=== PATIENT | male | born 1950 ===

== ENCOUNTER 2016-12-02 09:47 | Emergency (ER) | payer MEDICARE, BC ==
[2016-12-02 09:58] VITALS: BP 139/76
[2016-12-02] MEDS ORDERED: Lidocaine 1% MPF wEPI 200,000* 30 ML SDV ONE (10:28)
[2016-12-02] MEDS ORDERED: Lidocain 1% EPI 1:100,000 * 30 ML MDV ONE (10:29)
--- NOTE | 2016-12-02 11:34 | UC ---
Deshaun De La Garza Adam, [facility] 12/02/16 at 1008 . Skin Complaint HPI - HPI Summary HPI Summary: Doctors note: A 66 y/o male presents with redness under his left axilla. His vital signs are stable. He is afebrile. Pulse ox 100. Pt is a non-smoker. He has no allergies. He has Hx of HTN, arthritis, and previous similar skin complaints. In Room: Pt states that he noticed this abscess 2 days ago. The raised area is tender and touching the abscess aggravates the pain. Pt states that he has had this same condition 3 times in the same location. In the past, he has been treated at [facility] and been told that they "got the core out" and been given Penicillin. Pt states that he recently got over the flu. He has no other complaints at this time. He denies any allergies to medications. He denies any Hx of overnight hospital stays. FMHx of cardiac disease. - History of Current Complaint Chief Complaint: UCSkin Time Seen by Provider: 12/02/16 10:07 Stated Complaint: SKIN COMPLAINT Hx Obtained From: Patient Onset/Duration: Gradual Onset, Lasting Days, Still Present Timing: Constant Onset Severity: Mild Current Severity: Moderate Location: Other - Under left axilla Character: Pain, Redness, Raised Aggravating: Touch Alleviating: Nothing Similar Episode/Dx as: 3 prior abscesses in same location - Allergy/Home Medications Allergies/Adverse Reactions: Allergies Allergy/AdvReac Type Severity Reaction Status Date / Time No Known Allergies Allergy Verified 11/04/16 08:22 Review of Systems All Other Systems Reviewed And Are Negative: Yes PMH/Surg Hx/FS Hx/Imm Hx Endocrine History Of: Denies: Diabetes, Thyroid Disease Cardiovascular History Of: Reports: Hypertension Denies: Cardiac Disorders Respiratory History Of: Denies: COPD, Asthma GI/ History Of: Denies: Ulcer - Surgical History Surgical History: Yes Surgery Procedure, Year, and Place: right knee calcium scraping. hernia repair x3 - inguinal and umbilical, CATARACTS - Family History Known Family History: Positive: Cardiac Disease, Hypertension - Social History Occupation: Retired Lives: With Family - Domestic partner female Alcohol Use: Rare Substance Use Type: None Smoking Status (MU): Never Smoked Tobacco Have You Smoked in the Last Year: No - Immunization History Most Recent Influenza Vaccination: 2014 Physical Exam Triage Information Reviewed: Yes Appearance: Well-Appearing, No Pain Distress, Well-Nourished Vital Signs: Initial Vital Signs Temp 98.3 F 12/02/16 09:53 Pulse 72 12/02/16 09:53 Resp 18 12/02/16 09:53 BP 139/76 12/02/16 09:53 Pulse Ox 100 12/02/16 09:53 Eyes: Positive: Conjunctiva Clear ENT: Positive: Hearing grossly normal, Pharynx normal, TMs normal. Negative: Muffled/hoarse voice Neck: Positive: Supple, No Lymphadenopathy Respiratory: Positive: Chest non-tender, Lungs clear, Normal breath sounds, No respiratory distress Cardiovascular: Positive: RRR, No Murmur Abdomen Description: Positive: Nontender, No Organomegaly, Soft Bowel Sounds: Positive: Present Musculoskeletal: Positive: Strength Intact, ROM Intact Neurological: Positive: Alert Psychological: Positive: Age Appropriate Behavior Skin: Positive: Other - UNDER THE LEFT AXILLA APPROXIMATELY AT THE LEVEL OF T3 THERE IS A LINE OF ERYTHEMA STRETCHING FROM THE ANTERIOR AXILLARY LINE TO THE POSTERIOR AXILLARY LINE APPROXIMATELY 3.0 CM IN WIDTH GOING OVER A RAISED TENDER AREA THAT APPEARS TO BE AN ABSCESS THAT IS 5 CM LONG X 4 CM WIDE AT ITS MIDDLE. THERE IS NO ASCENDING LYMPHANGITIS AND THE AREA IS MILDLY TENDER. NODE IS ALSO MADE OF 2 3.0 CM SCARS ANTERIOR AND SUPERIOR TO THIS ABSCESS FROM PREVIOUS INCISION AND DRAINAGES. Course/Dx - Course Course Of Treatment: I&D Procedure by MD: Area of left lateral thorax was cleaned and draped. Lidocaine 1% with epinephrine was used. 3 cc's of purulent material were obtained. The opened abscess was irrigated with normal saline and peroxide (60 cc's) with expression of another 1 cc of purulence. Pus was sent for culture. - Differential Diagnoses - Skin Complaint Differential Diagnoses: Abscess, Cellulitis, Other - Cyst - Diagnoses Provider Diagnoses: 1. Left lateral thorax abscess: I&D. 2. Left lateral thorax cellulitis. Note: The pt will be put on cephalexin and will use warm soaks. He will return in 2 days to have the drain taken out and for follow-up. I expressed to the patient and he voiced his understanding that if he should have increased pain, redness, or swelling he should return. Discharge - Discharge Plan Condition: Stable Disposition: HOME Prescriptions: Cephalexin CAP* [Keflex 500 CAP*] 500 mg PO TID #30 cap Patient Education Materials: Abscess (ED), Incision and Drainage (ED) Referrals: Jermaine Sullivan MD [Primary Care Provider] - Additional Instructions: WE DISCUSSED: 1. YOUR ABSCESS WAS OPENED AND CULTURED. 2. YOU ARE STARTING ON 10 DAYS OF AN ANTIBIOTIC. 3. USE WARM SOAKS TO THE AREA FOR 10 MINUTES, FOUR TIMES A DAY. 4. RETURN IN 2 DAYS TO CHECK AND REMOVE DRAIN AND SEE IF YOU ARE IMPROVING. 5. GO TO ED FOR INCREASED PAIN, REDNESS, TEMPERATURE. 6. CALL US WITH ANY PROBLEMS. The documentation as recorded by the Deshaun negron Adam accurately reflects the service I personally performed and the decisions made by me, Milton Crowe MD.
== END 2016-12-02 12:05 | disposition home or self-care (01) ==
LOC: UCEAST 09:47
DX: L02.213 Cutaneous abscess of chest wall (principal); I10 Essential (primary) hypertension
CPT/HCPCS: 10060; 87070; 87205; 87640; 87641; 99212; G0463; J2001

== ENCOUNTER 2016-12-04 11:11 | Emergency (ER) | payer MEDICARE, BC ==
[2016-12-04 12:28] VITALS: BP 153/79
[2016-12-04] MEDS ORDERED: HYDROcodone/ACETAMIN 5-325 MG* 1 TAB PO ONE (14:08)
--- NOTE | 2016-12-11 15:04 | UC ---
Skin Complaint HPI - HPI Summary HPI Summary: Abscess on left side of chest wall Mid axilla line was I&D and packing was placed 2 days ago her to have packing removed and wound rechecked- - History of Current Complaint Chief Complaint: UCWounds Time Seen by Provider: 12/04/16 13:55 Stated Complaint: SURG URIAH Hx Obtained From: Patient Onset/Duration: Sudden Onset, Lasting Days, Still Present Skin Exposure Onset/Duration: Days Ago - i&D 2 days ago Timing: Constant Onset Severity: Moderate Current Severity: Moderate Pain Intensity: 7 Pain Scale Used: 0-10 Numeric Location: Discrete - left chest wall mid axilla Character: Redness, Painful Aggravating: Touch Alleviating: Heat Associated Signs & Symptoms: Positive: Drainage, Tenderness - Allergy/Home Medications Allergies/Adverse Reactions: Allergies Allergy/AdvReac Type Severity Reaction Status Date / Time No Known Allergies Allergy Verified 11/04/16 08:22 Review of Systems Constitutional: Negative Skin: Rash - abscess with surrounding erythema Eyes: Negative ENT: Negative Respiratory: Negative Cardiovascular: Negative Gastrointestinal: Negative Genitourinary: Negative Motor: Negative Neurovascular: Negative Musculoskeletal: Negative Neurological: Negative Psychological: Negative All Other Systems Reviewed And Are Negative: Yes PMH/Surg Hx/FS Hx/Imm Hx Previously Healthy: No Endocrine History Of: Denies: Diabetes, Thyroid Disease Cardiovascular History Of: Reports: Hypertension Denies: Cardiac Disorders Respiratory History Of: Denies: COPD, Asthma GI/ History Of: Denies: Ulcer - Surgical History Surgical History: Yes Surgery Procedure, Year, and Place: right knee calcium scraping. hernia repair x3 - inguinal and umbilical, CATARACTS - Family History Known Family History: Positive: Cardiac Disease, Hypertension - Social History Occupation: Retired Lives: With Family Alcohol Use: Occasionally Substance Use Type: None Smoking Status (MU): Never Smoked Tobacco Have You Smoked in the Last Year: No - Immunization History Most Recent Influenza Vaccination: 2014 Physical Exam Triage Information Reviewed: Yes Appearance: Well-Appearing, Well-Nourished, Pain Distress - mild Vital Signs: Initial Vital Signs Temp 98.0 F 12/04/16 12:24 Pulse 70 12/04/16 12:24 Resp 18 12/04/16 12:24 BP 153/79 12/04/16 12:24 Pulse Ox 98 12/04/16 12:24 Vital Signs Reviewed: Yes Eye Exam: Normal Eyes: Positive: Conjunctiva Clear ENT Exam: Normal ENT: Positive: Normal ENT inspection, Pharynx normal. Negative: Nasal congestion, Nasal drainage, Trismus, Muffled/hoarse voice Neck exam: Normal Neck: Positive: Supple, Nontender, No Lymphadenopathy Respiratory Exam: Normal Respiratory: Positive: Chest non-tender, Lungs clear, Normal breath sounds, No respiratory distress, No accessory muscle use Cardiovascular Exam: Normal Cardiovascular: Positive: RRR, No Murmur, Pulses Normal, Brisk Capillary Refill Musculoskeletal Exam: Normal Musculoskeletal: Positive: Strength Intact, ROM Intact, No Edema Neurological Exam: Normal Neurological: Positive: Alert, Muscle Tone Normal Psychological Exam: Normal Psychological: Positive: Normal Response To Family, Age Appropriate Behavior Skin: Positive: Other - open area with packing intact large amonut of erythema ---patient and family states it has decreased in size some purulent drainage noted as well Re-Evaluation - Re-Evaluation First Eval Change: Improved - packing removed---large amount of malodorous purulent esposito discharge from the wound (30cc) patient reports some increase incomfort after wounf packing removed and drainage occured Course/Dx - Course Course Of Treatment: continue, heat and antibiodics follow with surgeon for definative care of abscess, add hydrocodone for pain - Differential Diagnoses - Skin Complaint Differential Diagnoses: Abscess, Cellulitis - Diagnoses Provider Diagnoses: Resolving abscess with surrounding cellulitis left chest wall Discharge - Discharge Plan Condition: Stable Disposition: HOME Prescriptions: Hydrocodone-Acetaminophen [Hydrocodone/Acetaminophen 5-325 mg] 1 tab PO Q6HR PRN #20 tab MDD 4 PRN Reason: Pain Patient Education Materials: Abscess (ED), Abscess Follow-up (ED) Referrals: Ji Heredia MD [Medical Doctor] - 4 Days () Jermaine Sullivan MD [Primary Care Provider] -
== END 2016-12-04 14:24 | disposition home or self-care (01) ==
LOC: UCEAST 11:11
DX: L02.213 Cutaneous abscess of chest wall (principal)
CPT/HCPCS: 99212; G0463